=== PATIENT | male | born 1965 | race Two or more races ===

== ENCOUNTER 2025-04-30 12:23 | Inpatient (IN) | payer OTHER, MEDICAID ==
[~2025-04-30] VITALS: Ht 167.6 cm; Wt 62.6 kg
[2025-04-30 12:45] LABS: PLATELET COUNT (AUTO) 515 K/uL (150-450); RED BLOOD CELL COUNT(AUTO) 3.30 MIL/uL (4.5-6.0); RED CELL DISTRIBUTION WIDTH 16.7 % (11.5-15.0); WHITE BLOOD COUNT (AUTO) 14.3 K/uL (4.3-11.0)
[2025-04-30 12:55] LABS: CALCIUM, SERUM 9.0 mg/dL (8.5-10.1); CREATININE 0.6 mg/dL (0.6-1.3); SODIUM SERUM 131 mmol/L (136-145); UREA NITROGEN, BLOOD 26 mg/dL (7-18)
[2025-04-30 13:04] LABS: INR 1.03 (0.91-1.10)
[2025-04-30 13:08] LABS: ASPARTATE AMINOTRANSFERASE 22 U/L (15-37); NT-PRO BNP 1259 pg/mL (0-125); TOTAL PROTEIN, SERUM 8.1 g/dL (6.4-8.2)
[2025-04-30] MEDS: PIPERACILLIN /TAZOBACTAM 3.375 G in IV D5W 50 ML IV ONE (13:09)
[2025-04-30] MEDS: VANCOMYCIN 1 GM in IV D5W 250 ML IV ONE (13:40)
[2025-04-30] MEDS ORDERED: MAG HYDROX/AL HYDROX/SIMETH 30 ML UDC PO PRN (15:00)
[2025-04-30] MEDS ORDERED: ONDANSETRON HCL/PF 4 MG/2 ML VIAL IVP PRN (15:00)
[2025-04-30] MEDS ORDERED: MAGNESIUM HYDROXIDE 30 ML UDC PO PRN (15:00)
[2025-04-30] MEDS ORDERED: Z GUARD REMEDY 4 OZ OINT TP PRN (15:00)
[2025-04-30] MEDS ORDERED: DOSING PER PHARMACY-CEFEPIME IVPB XX PRN (15:00)
[2025-04-30] MEDS ORDERED: DOSING PER PHARMACY-VANCOMYCIN IV XX PRN (15:00)
[2025-04-30] MEDS ORDERED: IV NS 0.9% 250 ML IV ONE (15:20)
[2025-04-30] MEDS ORDERED: IOHEXOL-350 100 ML VIAL IV ONE (15:20)
[2025-04-30] MEDS ORDERED: METO25TA6 GT (15:35)
[2025-04-30] MEDS ORDERED: HYDR-4209 GT (15:35)
[2025-04-30] MEDS ORDERED: EMPA25TA GT (15:35)
[2025-04-30] MEDS ORDERED: FERR-68 GT (15:35)
[2025-04-30] MEDS ORDERED: COLL30OI TP (15:35)
[2025-04-30] MEDS ORDERED: NA P133E RC (15:35)
[2025-04-30] MEDS ORDERED: POVI3780 TP (15:35)
[2025-04-30] MEDS ORDERED: IPRA4AER IH ×2 (15:35)
[2025-04-30] MEDS ORDERED: MIDO5TAB4 GT (15:35)
[2025-04-30] MEDS ORDERED: DOCU100T2 GT (15:35)
[2025-04-30] MEDS ORDERED: CRAN1CAP7 GT (15:35)
[2025-04-30] MEDS ORDERED: LOPE2TAB25 GT (15:35)
[2025-04-30] MEDS ORDERED: ENOX40DI9 SQ (15:35)
[2025-04-30] MEDS ORDERED: MULT-213 GT (15:35)
[2025-04-30] MEDS ORDERED: BISA10SU11 RC (15:35)
[2025-04-30] MEDS ORDERED: DIPH25TA25 GT (15:35)
[2025-04-30] MEDS ORDERED: ACET-2030 GT (15:35)
[2025-04-30] MEDS ORDERED: INSU100I14 SQ (15:35)
[2025-04-30] MEDS ORDERED: CHLO473M3 MM (15:35)
[2025-04-30] MEDS ORDERED: ACET-868 GT (15:35)
[2025-04-30] MEDS ORDERED: CLOB15CR4 TP (15:35)
[2025-04-30] MEDS ORDERED: MAGN400O6 GT (15:35)
[2025-04-30 16:00] VITALS: BP 129/65; TEMP 99; O2SAT 40
[2025-04-30] MEDS: CEFEPIME 2 GM in IV D5W 100 ML IV SCH (17:47)
[2025-04-30] MEDS: VANCOMYCIN 500 MG in IV D5W 100ml IV ONE (17:47)
[2025-04-30] MEDS: GLUCERNA 1.2 1,000 ML BOTTLE NG PRN (18:48)
[2025-04-30 20:00] VITALS: BP 123/67; TEMP 98.6; O2SAT 40; O2SAT 96
[2025-04-30 21:15] LABS: ABG BASE EXCESS 3.1 mmol/L (-2.0-3.0); ABG OXYGEN SATURATION 98.4 % (94.0-98.0); ABG PCO2 43.7 mmHg (35.0-48.0); ABG PH 7.423 (7.350-7.450); ABG PO2 128.3 mmHg (83.0-108.0); ABG TOTAL HEMOGLOBIN 9.4 G/dL (13.5-17.5); FRACTIONATED INSPIRED OXYGEN 50.0 %; PEEP,BG 5 cm H2O; SET RATE, BG 14.0; SITE, ABG LEFT RADIAL; VT, ABG 450 mL
[2025-05-01] VITALS: BP 103/71; TEMP 98.4; O2SAT 40; O2SAT 99
[2025-05-01] MEDS: VANCOMYCIN HCL 1.25 GM in IV D5W 250 ML IV SCH (00:46)
[2025-05-01 04:00] VITALS: BP 103/71; TEMP 98.2; O2SAT 99
[2025-05-01 07:14] LABS: CALCIUM, SERUM 8.8 mg/dL (8.5-10.1); CREATININE 0.5 mg/dL (0.6-1.3); PHOSPHORUS 4.1 mg/dL (2.5-4.9); SODIUM SERUM 137.0 mmol/L (136-145); UREA NITROGEN, BLOOD 19.0 mg/dL (7-18)
[2025-05-01 07:22] LABS: PLATELET COUNT (AUTO) 549 K/uL (150-450); RED BLOOD CELL COUNT(AUTO) 3.41 MIL/uL (4.5-6.0); RED CELL DISTRIBUTION WIDTH 16.5 % (11.5-15.0); WHITE BLOOD COUNT (AUTO) 13.4 K/uL (4.3-11.0)
[2025-05-01 08:00] VITALS: BP 124/70; TEMP 97.9; O2SAT 100
[2025-05-01 12:00] VITALS: BP 121/70; TEMP 97.7; O2SAT 100
[2025-05-01] MEDS: DAKINS QUARTER STRENGTH (0.125%) 480 ML BOTTLE TOP SCH (12:06)
[2025-05-01] MEDS: VANCOMYCIN 1 GM in IV D5W 250ml IV SCH (13:15)
[2025-05-01 16:00] VITALS: BP 129/69; TEMP 97.7; O2SAT 99
[2025-05-01 20:00] VITALS: BP 106/61; TEMP 98.2; O2SAT 99
[2025-05-01] MEDS ORDERED: DEXTROSE 50%-WATER 50 ML DISP.SYRIN IV PRN (22:30)
[2025-05-01] MEDS: BLOOD SUGAR DIAGNOSTIC 1 EACH STRIP IN SCH (23:26)
[2025-05-01] MEDS: INSULIN REGULAR, HUMAN 100 UNIT/ML 3 ML VIAL SQ PRN (23:27)
[2025-05-01] MEDS: ACETAMINOPHEN 325 MG TABLET PO PRN (23:38)
[2025-05-02] VITALS: BP 124/64; TEMP 98.2; O2SAT 99
[2025-05-02 04:00] VITALS: BP 116/66; TEMP 98.2; O2SAT 100
[2025-05-02 08:00] VITALS: BP 111/77; TEMP 97.9; O2SAT 100
[2025-05-02 08:10] LABS: PLATELET COUNT (AUTO) 566 K/uL (150-450); RED BLOOD CELL COUNT(AUTO) 3.37 MIL/uL (4.5-6.0); RED CELL DISTRIBUTION WIDTH 17.1 % (11.5-15.0); WHITE BLOOD COUNT (AUTO) 14.9 K/uL (4.3-11.0)
[2025-05-02] MEDS: NEOMY SULF/BACITRAC ZN/POLY 15 GM TUBE TP SCH (08:39)
[2025-05-02 08:51] LABS: CALCIUM, SERUM 9.6 mg/dL (8.5-10.1); CREATININE 0.6 mg/dL (0.6-1.3); SODIUM SERUM 139.0 mmol/L (136-145); UREA NITROGEN, BLOOD 20.0 mg/dL (7-18)
[2025-05-02 12:00] VITALS: BP 97/55; TEMP 97.5; O2SAT 100
[2025-05-02 16:00] VITALS: BP 101/58; TEMP 98; O2SAT 100
[2025-05-02] MEDS: VANCOMYCIN 750 MG in IV D5W 250 ML IV SCH (18:24)
[2025-05-02 20:00] VITALS: BP 113/61; TEMP 98.8; O2SAT 100
[2025-05-03] VITALS (7 sets, daily range): BP systolic 93–138; BP diastolic 35–66; TEMP 97.7–98.4; O2SAT 99–100
[2025-05-03 08:01] LABS: CALCIUM, SERUM 9.2 mg/dL (8.5-10.1); CREATININE 0.4 mg/dL (0.6-1.3); SODIUM SERUM 138.0 mmol/L (136-145)
[2025-05-03 08:09] LABS: UREA NITROGEN, BLOOD 22.0 mg/dL (7-18)
[2025-05-03 13:24] LABS: PLATELET COUNT (AUTO) 555 K/uL (150-450); RED BLOOD CELL COUNT(AUTO) 3.12 MIL/uL (4.5-6.0); RED CELL DISTRIBUTION WIDTH 17.4 % (11.5-15.0); WHITE BLOOD COUNT (AUTO) 13.4 K/uL (4.3-11.0)
[2025-05-04] VITALS: BP 134/45; TEMP 98; O2SAT 100
[2025-05-04 04:00] VITALS: BP 114/66; TEMP 97.7; O2SAT 100
[2025-05-04 08:00] VITALS: BP 115/72; TEMP 97.6; O2SAT 100
[2025-05-04 12:00] VITALS: BP 111/97; TEMP 98.1; O2SAT 99
[2025-05-04 16:00] VITALS: BP 122/59; TEMP 97.9; O2SAT 100
[2025-05-04 17:32] LABS: CALCIUM, SERUM 9.1 mg/dL (8.5-10.1); CREATININE 0.5 mg/dL (0.6-1.3); SODIUM SERUM 137.0 mmol/L (136-145); UREA NITROGEN, BLOOD 24.0 mg/dL (7-18)
[2025-05-04 20:00] VITALS: BP 99/66; TEMP 98.6; O2SAT 100
[2025-05-05] VITALS (9 sets, daily range): BP systolic 99–137; BP diastolic 50–92; TEMP 97.2–98.8; O2SAT 96–100
[2025-05-05 11:07] LABS: CALCIUM, SERUM 9.4 mg/dL (8.5-10.1); CREATININE 0.6 mg/dL (0.6-1.3); SODIUM SERUM 134.0 mmol/L (136-145); UREA NITROGEN, BLOOD 20.0 mg/dL (7-18)
[2025-05-06] VITALS: BP 100/51; TEMP 97.7; O2SAT 91; O2SAT 95
[2025-05-06 04:00] VITALS: BP 100/48; TEMP 98.2; O2SAT 97
[2025-05-06 07:53] LABS: CALCIUM, SERUM 9.2 mg/dL (8.5-10.1); CREATININE 0.5 mg/dL (0.6-1.3); SODIUM SERUM 136.0 mmol/L (136-145); UREA NITROGEN, BLOOD 24.0 mg/dL (7-18)
[2025-05-06 12:00] VITALS: BP 101/42; TEMP 98; O2SAT 97
[2025-05-06 16:00] VITALS: BP 105/55; TEMP 98.1; O2SAT 97
[2025-05-06 20:00] VITALS: BP 144/67; TEMP 97.3; O2SAT 100
[2025-05-07] VITALS (7 sets, daily range): BP systolic 96–128; BP diastolic 57–69; TEMP 97.7–98.1; O2SAT 100
[2025-05-07 08:58] LABS: CALCIUM, SERUM 9.7 mg/dL (8.5-10.1); CREATININE 0.6 mg/dL (0.6-1.3); SODIUM SERUM 136.0 mmol/L (136-145); UREA NITROGEN, BLOOD 22.0 mg/dL (7-18)
[2025-05-07] MEDS: VANCOMYCIN 1 GM in IV D5W 250ml IV SCH (09:12)
[2025-05-08] VITALS: BP 100/54; TEMP 97.8; O2SAT 99
[2025-05-08 04:00] VITALS: BP 121/67; TEMP 97.8; O2SAT 99
[2025-05-08 07:24] LABS: CALCIUM, SERUM 9.7 mg/dL (8.5-10.1); CREATININE 0.6 mg/dL (0.6-1.3); SODIUM SERUM 137.0 mmol/L (136-145); UREA NITROGEN, BLOOD 22.0 mg/dL (7-18)
[2025-05-08 07:31] LABS: PLATELET COUNT (AUTO) 546 K/uL (150-450); RED BLOOD CELL COUNT(AUTO) 3.41 MIL/uL (4.5-6.0); RED CELL DISTRIBUTION WIDTH 17.0 % (11.5-15.0); WHITE BLOOD COUNT (AUTO) 11.9 K/uL (4.3-11.0)
[2025-05-08 08:00] VITALS: BP_SYST 113; BP_DIAS 54; BP_DIAS 59; TEMP 98.1; O2SAT 100
[2025-05-08] MEDS ORDERED: ALBUTEROL HALF STRENGTH 1.25 MG/3 ML VIAL.NEB NEB PRN (11:30)
[2025-05-08 12:00] VITALS: BP 99/53; TEMP 98.1; O2SAT 99
[2025-05-08 16:00] VITALS: BP 113/61; TEMP 98.8; O2SAT 100
[2025-05-08] MEDS ORDERED: IV NS 0.9% 250 ML IV PRN (18:00)
[2025-05-08 20:00] VITALS: BP 107/71; TEMP 98.1; O2SAT 100
[2025-05-08] MEDS: METOPROLOL TARTRATE 25 MG TABLET GT SCH (21:22)
[2025-05-09] VITALS: BP 103/83; TEMP 98.2; O2SAT 100
[2025-05-09 04:00] VITALS: BP 101/60; TEMP 98.1; O2SAT 100
[2025-05-09 07:23] LABS: CALCIUM, SERUM 9.7 mg/dL (8.5-10.1); CREATININE 0.7 mg/dL (0.6-1.3); SODIUM SERUM 137.0 mmol/L (136-145); UREA NITROGEN, BLOOD 26.0 mg/dL (7-18)
[2025-05-09 08:00] VITALS: BP 116/43; TEMP 97.1; O2SAT 100
[2025-05-09] MEDS: FERROUS SULFATE (325 MG) 325 MG/TAB TABLET GT SCH (08:52)
[2025-05-09] MEDS: DOCUSATE SODIUM LIQ 100 MG/10 ML UDC GT SCH (08:52)
[2025-05-09] MEDS: MIDODRINE HCL (5MG) 5 MG TABLET GT SCH (08:52)
[2025-05-09] MEDS: EMPAGLIFLOZIN 25 MG TABLET GT SCH (08:52)
[2025-05-09] MEDS: ENOXAPARIN SODIUM 40 MG/0.4 ML DISP.SYRIN SQ SCH (08:53)
[2025-05-09 12:00] VITALS: BP 99/56; TEMP 97.7; O2SAT 100
[2025-05-09] MEDS: OLANZAPINE 10 MG TABLET GT ONE (14:28)
[2025-05-09 16:00] VITALS: BP 102/65; TEMP 97.5; O2SAT 100
[2025-05-09] MEDS: VANCOMYCIN 750 MG in IV D5W 250 ML IV SCH (18:07)
[2025-05-09 20:00] VITALS: BP 97/44; TEMP 98.4; O2SAT 100
[2025-05-10] VITALS: BP 94/51; TEMP 98.2; O2SAT 100
[2025-05-10 04:00] VITALS: BP 94/55; TEMP 98.2; O2SAT 100
[2025-05-10 07:16] LABS: PLATELET COUNT (AUTO) 484 K/uL (150-450); RED BLOOD CELL COUNT(AUTO) 3.18 MIL/uL (4.5-6.0); RED CELL DISTRIBUTION WIDTH 16.8 % (11.5-15.0); WHITE BLOOD COUNT (AUTO) 11.7 K/uL (4.3-11.0)
[2025-05-10 07:46] LABS: CALCIUM, SERUM 9.7 mg/dL (8.5-10.1); CREATININE 0.8 mg/dL (0.6-1.3); PHOSPHORUS 4.6 mg/dL (2.5-4.9); SODIUM SERUM 140.0 mmol/L (136-145); UREA NITROGEN, BLOOD 32.0 mg/dL (7-18)
[2025-05-10 08:00] VITALS: BP 91/53; TEMP 97.9; O2SAT 100
[2025-05-10 12:00] VITALS: BP 107/95; TEMP 97; O2SAT 100
[2025-05-10] MEDS ORDERED: AMOX-430 GT (13:42)
[2025-05-10 16:00] VITALS: BP 92/52; TEMP 97.9; O2SAT 100
[2025-05-10 20:00] VITALS: BP 94/59; TEMP 99; O2SAT 100
[2025-05-11] VITALS: BP 98/58; TEMP 97.9; O2SAT 100
[2025-05-11 04:00] VITALS: BP 98/59; TEMP 98; O2SAT 100
[2025-05-11 07:53] LABS: CALCIUM, SERUM 9.9 mg/dL (8.5-10.1); CREATININE 0.8 mg/dL (0.6-1.3); SODIUM SERUM 139.0 mmol/L (136-145); UREA NITROGEN, BLOOD 40.0 mg/dL (7-18)
[2025-05-11 08:00] VITALS: BP 102/55; TEMP 97.5; O2SAT 99
[2025-05-11 12:00] VITALS: BP 143/80; TEMP 97.9; O2SAT 98
[2025-05-11] MEDS ORDERED: CEFE2FRO IV (13:17)
[2025-05-11] MEDS ORDERED: VANC750P9 IV (13:17)
[2025-05-11 15:06] VITALS: BP 98/48
== END 2025-05-11 15:40 | DRG 207 ==
LOC: ER 12:33 → TELE1 14:12
PROVIDERS: ADMIT Internal Medicine; ATTEND Nurse Practitioner Acute Care
PROC: 5A1955Z Respiratory Ventilation, Greater than 96 Consecutive Hours (ICD-10-PCS; principal; 2025-04-30)
DX: J15.9 Unspecified bacterial pneumonia (principal); L89.154 Pressure ulcer of sacral region, stage 4; L89.224 Pressure ulcer of left hip, stage 4; L89.894 Pressure ulcer of other site, stage 4; J96.21 Acute and chronic respiratory failure with hypoxia; Z99.11 Dependence on respirator [ventilator] status; E87.1 Hypo-osmolality and hyponatremia; M86.172 Other acute osteomyelitis, left ankle and foot; R64 Cachexia; G93.40 Encephalopathy, unspecified; L97.419 Non-pressure chronic ulcer of right heel and midfoot with unspecified severity; R13.10 Dysphagia, unspecified; E11.621 Type 2 diabetes mellitus with foot ulcer; Z93.1 Gastrostomy status; Z93.0 Tracheostomy status; N31.9 Neuromuscular dysfunction of bladder, unspecified; Z86.73 Personal history of transient ischemic attack (TIA), and cerebral infarction without residual deficits; M62.462 Contracture of muscle, left lower leg; Y95 Nosocomial condition; M62.461 Contracture of muscle, right lower leg; D64.9 Anemia, unspecified; E11.69 Type 2 diabetes mellitus with other specified complication; E86.1 Hypovolemia; I10 Essential (primary) hypertension; R79.89 Other specified abnormal findings of blood chemistry; Z79.4 Long term (current) use of insulin; Z79.01 Long term (current) use of anticoagulants; Z79.51 Long term (current) use of inhaled steroids; L97.519 Non-pressure chronic ulcer of other part of right foot with unspecified severity; L97.529 Non-pressure chronic ulcer of other part of left foot with unspecified severity; L89.216 Pressure-induced deep tissue damage of right hip; L89.620 Pressure ulcer of left heel, unstageable; L89.610 Pressure ulcer of right heel, unstageable; R21 Rash and other nonspecific skin eruption; L98.9 Disorder of the skin and subcutaneous tissue, unspecified
CPT/HCPCS: 31720; 36415; 71045-TC; 73630-TC; 80048-TC; 80076-TC; 80202-TC; 82962-TC; 83605-TC; 83735-TC; 83880; 84100-TC; 84484-TC; 85025-TC; 85378-TC; 85730-TC; 86140-TC; 87040-TC; 87081-TC; 87086-TC; 94002-TC; 94003-TC; 94760-TC; 94761-TC; 94762-TC; 94799-TC; 99082-TC; A4223; A4623; A6213; A6253; A6403; G0378; J0692; J1650; J1815; J2543; J3373; J3374; J7040; J7050; J7060; Q9967

== ENCOUNTER 2025-07-24 07:49 | Inpatient (IN) | payer OTHER, MEDICAID ==
[~2025-07-24] VITALS: Ht 124.5 cm; Wt 57.2 kg
[2025-07-24] VITALS (10 sets, daily range): BP systolic 94–119; BP diastolic 53–64; TEMP 97.7–98.4; O2SAT 94–100
[~2025-07-24 07:49] MED LIST: ACET-2030 GT; ACET-868 GT; BISA10SU11 RC; CEFE2FRO IV; CHLO473M3 MM; CLOB15CR4 TP; COLL30OI TP; CRAN1CAP7 GT; DIPH25TA25 GT; DOCU100T2 GT; EMPA25TA GT; ENOX40DI9 SQ; FERR-68 GT; FLUO30CR11 TP; HYDR-4209 GT; INSU100I14 SQ; IPRA4AER IH; LOPE2TAB25 GT; MAGN400O6 GT; METO25TA6 GT; MIDO5TAB4 GT; MULT-213 GT; NA P133E RC; POVI3780 TP; VANC750P9 IV
[2025-07-24] MEDS: IV NS 0.9% 1,000 ML BAG IV ONE (08:06)
[2025-07-24] MEDS: PIPERACILLIN /TAZOBACTAM 3.375 G in IV D5W 50 ML IV ONE (08:30)
[2025-07-24] MEDS ORDERED: NUT.237L31 GT (08:41)
[2025-07-24] MEDS ORDERED: ACET325T53 GT (08:41)
[2025-07-24] MEDS ORDERED: BACL10TA GT (08:41)
[2025-07-24 08:45] LABS: CALCIUM, SERUM 9.0 mg/dL (8.5-10.1); CREATININE 1.1 mg/dL (0.6-1.3); PLATELET COUNT (AUTO) 395 K/uL (150-450); RED BLOOD CELL COUNT(AUTO) 3.68 MIL/uL (4.5-6.0); RED CELL DISTRIBUTION WIDTH 20.0 % (11.5-15.0); SODIUM SERUM 139 mmol/L (136-145); UREA NITROGEN, BLOOD 31 mg/dL (7-18); WHITE BLOOD COUNT (AUTO) 21.0 K/uL (4.3-11.0)
[2025-07-24 08:51] LABS: ASPARTATE AMINOTRANSFERASE 35 U/L (15-37); TOTAL PROTEIN, SERUM 7.6 g/dL (6.4-8.2)
[2025-07-24 08:52] LABS: INR 1.0 (0.91-1.10)
[2025-07-24] MEDS: VANCOMYCIN 1 GM in IV D5W 250 ML IV ONE (08:55)
[2025-07-24 09:00] LABS: LACTIC ACID 4.9 mmol/L (0.4-2.0)
[2025-07-24 09:01] LABS: APPEARANCE,URINE TURBID (CLEAR); BLOOD, URINE 1+ Ery/uL (NEGATIVE); LEUKOCYTE ESTERASE ,URINE 1+ (NEGATIVE); NITRITE, URINE NEGATIVE (NEGATIVE); UGLUCOSE 3+ mg/dL (NEGATIVE)
[2025-07-24 09:02] LABS: ADD URINE CULTURE YES; SQUAMOUS EPITHELIAL CELL,UR Few /HPF (None Seen)
[2025-07-24] MEDS ORDERED: MAG HYDROX/AL HYDROX/SIMETH 30 ML UDC PO PRN (11:30)
[2025-07-24] MEDS ORDERED: ZOLPIDEM TARTRATE 5 MG TABLET PO PRN (11:30)
[2025-07-24] MEDS ORDERED: MAGNESIUM HYDROXIDE 30 ML UDC PO PRN (11:30)
[2025-07-24] MEDS ORDERED: ONDANSETRON HCL/PF 4 MG/2 ML VIAL IVP PRN (11:30)
[2025-07-24] MEDS ORDERED: Z GUARD REMEDY 4 OZ OINT TP PRN (11:30)
[2025-07-24] MEDS: ENOXAPARIN SODIUM 40 MG/0.4 ML DISP.SYRIN SQ SCH (13:35)
[2025-07-24 16:44] LABS: ABG BASE EXCESS 6.7 mmol/L (-2.0-3.0); ABG OXYGEN SATURATION 98.0 % (94.0-98.0); ABG PCO2 49.9 mmHg (35.0-48.0); ABG PH 7.426 (7.350-7.450); ABG PO2 112.5 mmHg (83.0-108.0); ABG TOTAL HEMOGLOBIN 10.4 G/dL (13.5-17.5); FLOW, BLOOD GAS 5.00 L/min (0.00-30.00); FRACTIONATED INSPIRED OXYGEN 40.0 %; SITE, ABG RIGHT RADIAL
[2025-07-24] MEDS ORDERED: DEXTROSE 50%-WATER 50 ML DISP.SYRIN IV PRN (18:00)
[2025-07-24] MEDS: IPRATROPIUM NEB FS 0.5 MG/2.5 ML AMPUL.NEB NEB SCH (19:43)
[2025-07-24] MEDS: MEROPENEM 500 MG in IV NS 0.9% 50 ML IV SCH (21:06)
[2025-07-24] MEDS: IV NS 0.9% 1,000 ML IV PRN (21:06)
[2025-07-24] MEDS: BLOOD SUGAR DIAGNOSTIC 1 EACH STRIP IN SCH (21:07)
[2025-07-24] MEDS ORDERED: GLUCERNA 1.5 1,000 ML BOTTLE GT PRN (23:00)
[2025-07-24] MEDS: GLUCERNA 1.2 1,000 ML BOTTLE GT PRN (23:32)
[2025-07-25] VITALS (13 sets, daily range): BP systolic 101–127; BP diastolic 51–71; TEMP 98.1–98.2; O2SAT 97–100
[2025-07-25] MEDS: ACETAMINOPHEN 325 MG TABLET PO PRN (01:23)
[2025-07-25 06:42] LABS: PLATELET COUNT (AUTO) 342 K/uL (150-450); RED BLOOD CELL COUNT(AUTO) 3.31 MIL/uL (4.5-6.0); RED CELL DISTRIBUTION WIDTH 19.5 % (11.5-15.0); WHITE BLOOD COUNT (AUTO) 8.5 K/uL (4.3-11.0)
[2025-07-25 06:59] LABS: CALCIUM, SERUM 8.9 mg/dL (8.5-10.1); CREATININE 0.5 mg/dL (0.6-1.3); PHOSPHORUS 2.9 mg/dL (2.5-4.9); SODIUM SERUM 143.0 mmol/L (136-145); UREA NITROGEN, BLOOD 20.0 mg/dL (7-18)
[2025-07-25] MEDS: INSULIN REGULAR, HUMAN 100 UNIT/ML 3 ML VIAL SQ PRN (11:32)
[2025-07-25] MEDS: THERAHONEY GEL 1.5 OZ TUBE TP SCH (16:05)
[2025-07-26] VITALS (13 sets, daily range): BP systolic 124–132; BP diastolic 63–76; TEMP 97.3–98.1; O2SAT 98–100
[2025-07-26] MEDS ORDERED: LEVO500T90 PO (10:04)
[2025-07-26] MEDS ORDERED: PERMETHRIN 5% CRM 60 GM TUBE TP ONE (17:30)
[2025-07-26 19:08] LABS: OCCULT BLOOD STOOL NEGATIVE (NEGATIVE)
[2025-07-26] MEDS: diphenhydrAMINE HCL ELIX 25 MG/10 ML UDC PO PRN (23:11)
[2025-07-27] VITALS (13 sets, daily range): BP systolic 95–128; BP diastolic 52–67; TEMP 97.9–98.1; O2SAT 97–100
[2025-07-27] MEDS ORDERED: MEROPENEM 1,000 MG in IV NS 0.9% 50 ML IV SCH (08:00)
[2025-07-27] MEDS: MEROPENEM 1 G in IV NS 0.9% 100 ML IV SCH (09:28)
[2025-07-27] MEDS: PERMETHRIN 5% CRM 60 GM TUBE TP ONE (14:57)
[2025-07-28] VITALS (14 sets, daily range): BP systolic 100–108; BP diastolic 51–86; TEMP 97.5–99; O2SAT 98–100
[2025-07-28 06:35] LABS: PLATELET COUNT (AUTO) 390 K/uL (150-450); RED BLOOD CELL COUNT(AUTO) 3.36 MIL/uL (4.5-6.0); RED CELL DISTRIBUTION WIDTH 19.7 % (11.5-15.0); WHITE BLOOD COUNT (AUTO) 9.3 K/uL (4.3-11.0)
[2025-07-28 06:50] LABS: CALCIUM, SERUM 8.6 mg/dL (8.5-10.1); CREATININE 0.4 mg/dL (0.6-1.3); SODIUM SERUM 141.0 mmol/L (136-145); UREA NITROGEN, BLOOD 12.0 mg/dL (7-18)
[2025-07-28] MEDS ORDERED: LIDOCAINE HCL/MPF 1% 30 ML VIAL IJ ONE (09:01)
[2025-07-28] MEDS ORDERED: FENTANYL PF 100MCG/2ML AMPUL ONE (09:02)
[2025-07-28] MEDS ORDERED: BUPIVACAINE 0.5 % PF 150 MG/30 ML VIAL ONE (09:02)
[2025-07-28] MEDS ORDERED: BACITRACIN/POLYMYXIN B 15 GM TUBE TP ONE (09:36)
[2025-07-28] MEDS: IV NS 0.9% 1,000 ML IV PRN (11:15)
[2025-07-28] MEDS ORDERED: ANESTHESIA TRAY IN PYXIS 1 EA TRAY MC ONE (15:04)
[2025-07-29] VITALS (15 sets, daily range): BP systolic 108–122; BP diastolic 54–68; TEMP 98.1–98.2; O2SAT 95–100
[2025-07-29] MEDS: IV D5/ 0.9% NACL 1,000 ML IV PRN (10:26)
[2025-07-29 10:54] LABS: PLATELET COUNT (AUTO) 359 K/uL (150-450); RED BLOOD CELL COUNT(AUTO) 3.29 MIL/uL (4.5-6.0); RED CELL DISTRIBUTION WIDTH 19.7 % (11.5-15.0); WHITE BLOOD COUNT (AUTO) 8.6 K/uL (4.3-11.0)
[2025-07-29 11:13] LABS: CALCIUM, SERUM 8.6 mg/dL (8.5-10.1); CREATININE 0.6 mg/dL (0.6-1.3); PHOSPHORUS 3.2 mg/dL (2.5-4.9); SODIUM SERUM 138.0 mmol/L (136-145); UREA NITROGEN, BLOOD 11.0 mg/dL (7-18)
[2025-07-29] MEDS: MAGNESIUM OXIDE 400 MG TABLET NG ONE (15:21)
[2025-07-29] MEDS: TRIAMCINOLONE OINT 0.1% 15 GM TUBE TP SCH (17:39)
[2025-07-29] MEDS: ARGININE/GLUTAMINE/CALCIUM BMB 1 EACH POWD.PACK GT SCH (17:45)
[2025-07-30] VITALS (15 sets, daily range): BP systolic 97–117; BP diastolic 50–76; TEMP 97.3–97.9; O2SAT 95–100
[2025-07-30 07:23] LABS: PLATELET COUNT (AUTO) 400 K/uL (150-450); RED BLOOD CELL COUNT(AUTO) 3.56 MIL/uL (4.5-6.0); RED CELL DISTRIBUTION WIDTH 20.1 % (11.5-15.0); WHITE BLOOD COUNT (AUTO) 9.3 K/uL (4.3-11.0)
[2025-07-30 07:34] LABS: ASPARTATE AMINOTRANSFERASE 14.0 U/L (15-37); CALCIUM, SERUM 8.6 mg/dL (8.5-10.1); CREATININE 0.6 mg/dL (0.6-1.3); PHOSPHORUS 2.8 mg/dL (2.5-4.9); SODIUM SERUM 139.0 mmol/L (136-145); TOTAL PROTEIN, SERUM 6.7 g/dL (6.4-8.2); UREA NITROGEN, BLOOD 15.0 mg/dL (7-18)
[2025-07-30] MEDS: LINEZOLID 600 MG TABLET GT SCH (21:29)
[2025-07-30] MEDS ORDERED: MORPHINE SULFATE INJ 2 MG/ML DISP.SYRIN ONE (21:42)
[2025-07-30] MEDS: MORPHINE SULFATE INJ 2 MG/ML DISP.SYRIN IV PRN (21:45)
[2025-07-31] VITALS (13 sets, daily range): BP systolic 90–110; BP diastolic 57–78; TEMP 97.5–98.1; O2SAT 94–99
[2025-07-31] MEDS: GLUCERNA 1.2 1,000 ML BOTTLE GT PRN (12:52)
[2025-08-01] VITALS (9 sets, daily range): BP systolic 93; BP diastolic 53; TEMP 97.9; O2SAT 95–99
== END 2025-08-01 17:10 | DRG 622 ==
LOC: ER 07:53 → TELE 11:11 → MED 07-25 08:29
PROVIDERS: ADMIT Internal Medicine; ATTEND Internal Medicine
PROC: 0QBL0ZZ Excision of Right Tarsal, Open Approach (ICD-10-PCS; 2025-07-28)
PROC: 0HRNXK3 Replacement of Left Foot Skin with Nonautologous Tissue Substitute, Full Thickness, External Approach (ICD-10-PCS; 2025-07-28)
PROC: 0HRMXK3 Replacement of Right Foot Skin with Nonautologous Tissue Substitute, Full Thickness, External Approach (ICD-10-PCS; 2025-07-28)
PROC: 0JBR0ZZ Excision of Left Foot Subcutaneous Tissue and Fascia, Open Approach (ICD-10-PCS; principal; 2025-07-28 09:00)
DX: E11.69 Type 2 diabetes mellitus with other specified complication (principal); G93.41 Metabolic encephalopathy; L89.894 Pressure ulcer of other site, stage 4; L89.154 Pressure ulcer of sacral region, stage 4; L89.224 Pressure ulcer of left hip, stage 4; Z99.11 Dependence on respirator [ventilator] status; M86.8X7 Other osteomyelitis, ankle and foot; J96.12 Chronic respiratory failure with hypercapnia; E87.20 Acidosis, unspecified; L97.414 Non-pressure chronic ulcer of right heel and midfoot with necrosis of bone; L03.116 Cellulitis of left lower limb; L03.115 Cellulitis of right lower limb; J98.11 Atelectasis; E86.0 Dehydration; Z93.0 Tracheostomy status; Z93.1 Gastrostomy status; Z86.73 Personal history of transient ischemic attack (TIA), and cerebral infarction without residual deficits; Z79.899 Other long term (current) drug therapy; Z79.84 Long term (current) use of oral hypoglycemic drugs; Z78.9 Other specified health status; R13.10 Dysphagia, unspecified; G93.89 Other specified disorders of brain; E11.621 Type 2 diabetes mellitus with foot ulcer; E03.9 Hypothyroidism, unspecified; D63.8 Anemia in other chronic diseases classified elsewhere; E05.90 Thyrotoxicosis, unspecified without thyrotoxic crisis or storm; G40.909 Epilepsy, unspecified, not intractable, without status epilepticus; L97.519 Non-pressure chronic ulcer of other part of right foot with unspecified severity; L97.524 Non-pressure chronic ulcer of other part of left foot with necrosis of bone; M85.80 Other specified disorders of bone density and structure, unspecified site; I10 Essential (primary) hypertension; N31.9 Neuromuscular dysfunction of bladder, unspecified; R33.9 Retention of urine, unspecified; L89.210 Pressure ulcer of right hip, unstageable; M50.30 Other cervical disc degeneration, unspecified cervical region; M48.02 Spinal stenosis, cervical region; Z79.4 Long term (current) use of insulin; Z79.01 Long term (current) use of anticoagulants; Z79.51 Long term (current) use of inhaled steroids; R79.89 Other specified abnormal findings of blood chemistry; B96.89 Other specified bacterial agents as the cause of diseases classified elsewhere
CPT/HCPCS: 31720; 36415; 36600; 70450-TC; 71045-TC; 73620-TC; 73630-TC; 74230-TC; 80048-TC; 80053-TC; 80076-TC; 81001; 82272-TC; 82803-TC; 82962-TC; 83605-TC; 83735-TC; 84100-TC; 84484-TC; 85025-TC; 85730-TC; 87040-TC; 87070-TC; 87081-TC; 87086-TC; 87186-TC; 92526; 92611; 93307-TC; 94640-TC; 94664-TC; 94760-TC; 94762-TC; 94799-TC; 99082-TC; A2007; A4223; A4623; A6209; A6223; A6253; A6254; A6403; G0378; J1650; J1815; J2185; J2270; J2543; J3010; J3373; J3490; J7030; J7040; J7042; J7060; J7070; Q0163